=== PATIENT | female | born 1980 ===

== ENCOUNTER 2018-10-16 20:19 | Emergency (ER) | payer SELFPAY ==
[2018-10-16 20:34] VITALS: PULSE 74; RESP 16; TEMP 98.4; O2SAT 99
[2018-10-16] MEDS ORDERED: Sodium Chloride 0.9% 1,000 ML IV STA (20:48)
[2018-10-16 21:20] LABS: BASO % 0.7 % (0.0-2.0); EOS # 0.2 K/uL (0.0-0.7); EOS % 2.7 % (0.0-4.0); HEMOGLOBIN 13.1 g/dL (12.0-16.0); LYMPH # 1.7 K/uL (1.0-4.3); LYMPH % 28.2 % (20.0-40.0); MEAN CELL VOLUME 86.9 fl (81.0-99.0); MEAN CORPUSCULAR HEMOGLOBIN 29.5 pg (27.0-31.0); MEAN CORPUSCULAR HGB CONC 33.9 g/dL (33.0-37.0); MEAN PLATELET VOLUME 8.9 fl (7.2-11.7); MONO # 0.5 K/uL (0.0-0.8); MONO % 7.6 % (0.0-10.0); NEUT # 3.8 K/uL (1.8-7.0); NEUT % 60.8 % (50.0-75.0); RBC 4.45 Mil/uL (3.80-5.20); RED CELL DISTRIBUTION WIDTH 12.6 % (11.5-14.5); WHITE BLOOD COUNT 6.2 K/uL (4.8-10.8)
[2018-10-16 21:29] LABS: ALB/GLOB RATIO 0.9 (1.0-2.1); ALBUMIN 3.3 g/dL (3.5-5.0); ALT/SGPT 25 U/L (9-52); AST/SGOT 33 U/L (14-36); BLOOD UREA NITROGEN 20 mg/dl (7-17); CALCIUM 8.6 mg/dL (8.4-10.2); GFR NON-AFRICAN AMERICAN > 60
--- NOTE | 2018-10-16 21:32 | ED PDOC ---
Syncope/Near Syncope/Dizziness Time Seen by Provider: 10/16/18 20:39 Chief Complaint (Nursing): Dizziness/Lightheaded Chief Complaint (Provider): Syncope History Per: Patient History/Exam Limitations: no limitations Onset/Duration Of Symptoms: Hrs Current Symptoms Are (Timing): Still Present Activity At Onset Of Symptoms: Walking Additional Complaint(s): 38 y/o female with no significant PMHx presents to the ED for evaluation of a syncopal episode, onset 3 hours prior to arrival. Patient states she was walking with her son when she suddenly "passed out'". Patient states the next thing she remembers when she woke up was people around her. Patient reports of getting up and feeling okay on her way home. At this time, patient notes of having a mild headache. Son encouraged mother to come to the ER for further evaluation. On arrival to the ED, patient appears anxious and noted to be making poor eye contact. When questioned about underlying anxiety or depression, son states that the patient's co-worker who was 38 y/o two days ago and that she was the last person to see him. Patient has been upset since then. However, patient denies any depression. PMD: none provided Past Medical History Reviewed: Historical Data, Nursing Documentation, Vital Signs Vital Signs: Last Vital Signs Temp 98.4 F 10/16/18 20:33 Pulse 74 10/16/18 20:33 Resp 16 10/16/18 20:33 BP 152/97 H 10/16/18 20:33 Pulse Ox 99 10/16/18 20:33 - Medical History PMH: No Chronic Diseases - Surgical History Surgical History: No Surg Hx - Family History Family History: States: Unknown Family Hx - Allergies Allergies/Adverse Reactions: Allergies Allergy/AdvReac Type Severity Reaction Status Date / Time No Known Allergies Allergy Verified 10/16/18 20:31 Review of Systems ROS Statement: Except As Marked, All Systems Reviewed And Found Negative Neurological: Positive for: Headache, Other (syncope) Physical Exam - Reviewed Nursing Documentation Reviewed: Yes Vital Signs Reviewed: Yes - Physical Exam Appears: Positive for: No Acute Distress (poor eye contact) Head Exam: Positive for: ATRAUMATIC, NORMOCEPHALIC Skin: Positive for: Normal Color, Warm, Dry Eye Exam: Positive for: Normal appearance, EOMI, PERRL Neck: Positive for: Normal, Painless ROM Cardiovascular/Chest: Positive for: Regular Rate, Rhythm. Negative for: Murmur Respiratory: Positive for: Normal Breath Sounds. Negative for: Respiratory Distress Gastrointestinal/Abdominal: Positive for: Normal Exam, Soft. Negative for: T enderness Extremity: Positive for: Normal ROM. Negative for: Deformity Neurological/Psych: Positive for: Awake, Alert, Mood/Affect (flat affect), Other (appears internally pre-occupied) - Laboratory Results Result Diagrams: 10/16/18 21:12 10/16/18 21:12 - ECG O2 Sat by Pulse Oximetry: 99 (RA) Pulse Ox Interpretation: Normal Medical Decision Making Medical Decision Making: Time: 2047 Impression: 38 y/o female with syncopal event and possible underlying depression Plan: -- CT Head w/o Contrast -- EKG -- CMP -- ED Urine Dipstick -- ED Urine -- CBC with Differentials -- Glucose, POC -- Sodium Chloride 0.9% IV 1000 mls/hr -- Heplock Insertion -- Accucheck -- Urinalysis Time: 2211 CT HEAD FINDINGS: BRAIN No acute intraparenchymal hemorrhage. No mass lesion. No CT evidence for acute territorial infarct. No midline shift or extra-axial collections. VENTRICLES: No hydrocephalus. ORBITS: The orbits are unremarkable. SINUSES AND MASTOIDS: The paranasal sinuses and mastoid air cells are clear. BONES: No fracture. SOFT TISSUES: Unremarkable. IMPRESSION: No acute intracranial abnormality. Electronically signed on Oct 16, 2018 10:12:43 PM EDT by: Dejuan Byrd M.D., SEEMA Certified By [facility] Fellowship Trained MRI and CT Specialist Patient evaluated and cleared for discharge by crisis Dx Adjustment D/O, syncope Scribe Attestation: Documented by Tish Carlson, acting as a scribe Ben Yeboah MD. Provider Scribe Attestation: All medical record entries made by the Scribe were at my direction and personally dictated by me. I have reviewed the chart and agree that the record accurately reflects my personal performance of the history, physical exam, medical decision making, and the department course for this patient. I have also personally directed, reviewed, and agree with the discharge instructions and disposition. Disposition - Clinical Impression Clinical Impression: Adjustment disorder, Syncope - Disposition Referrals: [facility] [Outside] Disposition Time: 22:30 Condition: STABLE Instructions: Adjustment Disorder Forms: [facility] (Ukrainian) Print Language: LATVIAN
[2018-10-16 21:44] LABS: SQUAMOUS EPITHIAL 4 /hpf (0-5); URINE BACTERIA RARE (<OCC); URINE BILIRUBIN NEGATIVE (NEGATIVE); URINE BLOOD LARGE (NEGATIVE); URINE CLARITY CLOUDY (Clear); URINE COLOR YELLOW (YELLOW); URINE GLUCOSE (UA) NEG (NEGATIVE); URINE LEUKOCYTE ESTERASE NEG Leu/uL (Negative); URINE PROTEIN >=500 mg/dL (NEGATIVE); URINE UROBILINOGEN 0.2-1.0 mg/dL (0.2-1.0)
[2018-10-17 00:28] VITALS: BP 147/89
--- NOTE | 2018-10-17 11:09 | CT ---
Date of service: 10/16/2018 PROCEDURE: CT HEAD WITHOUT CONTRAST. HISTORY: syncope COMPARISON: None available. TECHNIQUE: Axial computed tomography images were obtained through the head/brain without intravenous contrast. Radiation dose: Total exam DLP = 707.86 mGy-cm. This CT exam was performed using one or more of the following dose reduction techniques: Automated exposure control, adjustment of the mA and/or kV according to patient size, and/or use of iterative reconstruction technique. FINDINGS: HEMORRHAGE: No intracranial hemorrhage. BRAIN: No mass effect or edema. No atrophy or chronic microvascular ischemic changes. VENTRICLES: Unremarkable. No hydrocephalus. CALVARIUM: Unremarkable. PARANASAL SINUSES: Unremarkable as visualized. No significant inflammatory changes. MASTOID AIR CELLS: Unremarkable as visualized. No inflammatory changes. OTHER FINDINGS: None. IMPRESSION: Normal CT of the Head.
--- NOTE | 2018-10-17 12:21 | CARD ---
APPROVED REPORT Date of service: 10/16/2018 EKG Measurement Heart [id number] <Conclusion> Normal sinus rhythm Normal ECG
== END 2018-10-17 00:24 | disposition home or self-care (01) ==
LOC: H.ER 20:19
DX: R55 Syncope and collapse (principal); F43.20 Adjustment disorder, unspecified
CPT/HCPCS: 70450; 80053; 81003; 81025; 82948; 85025; 93005; 96360; 99285; J7030